=== PATIENT | male | born 1965 | race Caucasian/White ===

== ENCOUNTER 2019-03-10 09:19 | Day surgery (SDC) | payer BC ==
[2019-03-10] VITALS (9 sets, daily range): BP systolic 133–144; BP diastolic 70–88
[~2019-03-10] VITALS: Ht 188 cm; Wt 147.7 kg
[2019-03-10] MEDS ORDERED: diphenhydrAMINE 25mg capsule PO PRN (09:40)
[2019-03-10] MEDS ORDERED: normal saline 1,000 ML IV SCH (09:40)
[2019-03-10] MEDS ORDERED: AMLO10TA4 PO (09:44)
[2019-03-10] MEDS ORDERED: ALLO100T PO (09:44)
[2019-03-10] MEDS ORDERED: ASPI-611 PO (09:44)
[2019-03-10] MEDS ORDERED: METROPROLOL PO (09:46)
[2019-03-10 10:31] LABS: BASOPHILS % (AUTO) 0.6 % (0-1); EOSINOPHILS # (AUTO) 0.1 X10'3 (0-0.9); EOSINOPHILS % (AUTO) 2.4 % (0-6); HEMATOCRIT 43.3 % (42.0-52.0); HEMOGLOBIN 14.6 g/dl (14.0-17.9); LYMPHOCYTES # (AUTO) 1.5 X10'3 (1.1-4.8); LYMPHOCYTES % (AUTO) 24.6 % (21-51); MEAN CORPUSCULAR HGB CONC 33.7 g/dL (33.0-36.5); MEAN PLATELET VOLUME 9.7 FL (7.4-10.4); MONOCYTES # (AUTO) 0.4 X10'3 (0-0.9); MONOCYTES % (AUTO) 6.9 % (2-12); NEUTROPHILS # (AUTO) 3.9 X10'3 (1.8-7.7); NEUTROPHILS % (AUTO) 65.5 % (42-75); PLATELET COUNT 147 X10'3 (140-440); RED BLOOD COUNT 4.86 X10'6 (4.70-6.10); RED CELL DISTRIBUTION WIDTH 13.4 % (11.5-14.5)
[2019-03-10 10:46] LABS: ALBUMIN 3.7 G/DL (3.4-5.0); ANION GAP 5 (8-16); BLOOD UREA NITROGEN 11 MG/DL (7-18); CALCIUM 8.8 MG/DL (8.5-10.1); CHLORIDE 106 MMOL/L (99-107); GLUCOSE 108 MG/DL (70-104); MAGNESIUM 2.2 MG/DL (1.5-2.4); POTASSIUM 4.1 MMOL/L (3.5-5.1); SODIUM 137 MMOL/L (135-145); TOTAL CARBON DIOXIDE 26.2 MMOL/L (24-32); eGFR 78 ML/MIN
[2019-03-10] MEDS ORDERED: midazolam 2 mg/2 ml injection ONE ×2 (10:51→11:21)
[2019-03-10] MEDS ORDERED: fentaNYL/PF 50MCG/1 ML 2ML syringe ONE (10:51)
[2019-03-10] MEDS ORDERED: iohexol 350MG/ML 100ml bottle IV ONE (10:51)
[2019-03-10] MEDS ORDERED: iohexol 350 MG/ML 50ML vial IV ONE (10:51)
[2019-03-10] MEDS ORDERED: LIDOcaine 1% (10mg/ml)w/preservative injection 20ml MDV ONE (10:51)
== END 2019-03-10 15:30 | disposition home or self-care (01) ==
LOC: SSTAY O 09:19
PROVIDERS: ATTEND Internal Medicine Cardiovascular Disease
DX: I25.119 Atherosclerotic heart disease of native coronary artery with unspecified angina pectoris (principal); I10 Essential (primary) hypertension; E78.5 Hyperlipidemia, unspecified; G47.30 Sleep apnea, unspecified; Z79.82 Long term (current) use of aspirin; Z79.899 Other long term (current) drug therapy; Z88.8 Allergy status to other drugs, medicaments and biological substances
CPT/HCPCS: 36415; 80048; 83735; 85025; 85610; 93458; 99152; A6257; C1760; C1769; C1894; J1644; J2001; J2250; J3010; J7030; Q0163; Q9967; 93005; A4620